=== PATIENT | male | born 1965 | race Caucasian/White ===

== ENCOUNTER 2021-07-20 09:59 | Day surgery (SDC) | payer BC ==
[2021-07-13 15:32] VITALS: BMI 29.3
[2021-07-20] MEDS ORDERED: BUPIVACAINE HCL/EPINEPHRINE/PF 30 ML VIAL IJ ONE (10:56)
[2021-07-20] MEDS ORDERED: PROPOFOL 20 ML ONE ×2 (12:20)
[2021-07-20] MEDS ORDERED: MIDAZOLAM HCL 2 MG/2 ML SINGLE DOSE VIAL ONE (12:20)
[2021-07-20] MEDS ORDERED: ROCURONIUM BROMIDE 50 MG/5 ML SYRINGE ONE (12:39)
[2021-07-20] MEDS ORDERED: SUGAMMADEX SODIUM 200 MG/2 ML VIAL ONE (12:52)
[2021-07-20] MEDS ORDERED: ONDANSETRON 4 MG/2 ML VIAL IVPUSH PRN (14:42)
[2021-07-20] MEDS ORDERED: oxyCODONE HCL 5 MG TABLET PO PRN ×2 (14:42)
[2021-07-20] MEDS ORDERED: LACTATED RINGERS SOLUTION 1,000 ML IV SCH (14:45)
[2021-07-20 14:52] VITALS: TEMP 97.8
[2021-07-20 15:16] VITALS: BP 131/79; PULSE 78
== END 2021-07-20 17:00 | disposition home or self-care (01) ==
LOC: FASU 09:59
PROVIDERS: ATTEND Orthopaedic Surgery
PROC: 0SQD4ZZ Repair Left Knee Joint, Percutaneous Endoscopic Approach (ICD-10-PCS; principal; 2021-07-20 13:00)
PROC: 0SQD4ZZ Repair Left Knee Joint, Percutaneous Endoscopic Approach (ICD-10-PCS; 2021-07-20 13:00)
DX: S83.242A Other tear of medial meniscus, current injury, left knee, initial encounter (principal); M17.12 Unilateral primary osteoarthritis, left knee; X58.XXXA Exposure to other specified factors, initial encounter; Y93.9 Activity, unspecified; Y92.9 Unspecified place or not applicable
CPT/HCPCS: 88304-TC; 94760

== ENCOUNTER 2023-11-23 08:38 | Day surgery (SDC) | payer BC ==
[2023-11-18 08:58] VITALS: BMI 26.2
[2023-11-23] MEDS ORDERED: oxyCODONE HCL 5 MG TABLET PO PRN (10:12)
[2023-11-23] MEDS ORDERED: LACTATED RINGERS SOLUTION 1,000 ML IV SCH (10:15)
[2023-11-23] MEDS ORDERED: MIDAZOLAM HCL 2 MG/2 ML SINGLE DOSE VIAL ONE (10:27)
[2023-11-23] MEDS ORDERED: FENTANYL CITRATE/PF 50 MCG/ML VIAL ONE (10:27)
[2023-11-23] MEDS ORDERED: PROPOFOL 40 ML ONE ×2 (10:32→11:17)
[2023-11-23] MEDS ORDERED: BUPIVACAINE HCL/EPINEPHRINE/PF 30 ML VIAL IJ ONE (10:35)
[2023-11-23] MEDS ORDERED: BUPIVACAINE HCL/PF 2.5 MG/ML - 30 ML VIAL IJ ONE (10:35)
[2023-11-23] MEDS ORDERED: ceFAZolin SODIUM 1 GM VIAL ONE (10:46)
[2023-11-23 12:00] VITALS: RESP 18
[2023-11-23] MEDS ORDERED: oxyCODONE HCL 5 MG TABLET ONE (12:39)
[2023-11-23] MEDS: oxyCODONE HCL 5 MG TABLET PO PRN (12:40)
[2023-11-23 12:50] VITALS: TEMP 97.6
[2023-11-23 14:41] VITALS: BP 134/69; PULSE 69
== END 2023-11-23 13:15 | disposition home or self-care (01) ==
LOC: FASU 08:38
PROVIDERS: ATTEND Orthopaedic Surgery
PROC: 0SBC4ZZ Excision of Right Knee Joint, Percutaneous Endoscopic Approach (ICD-10-PCS; principal; 2023-11-23 11:00)
DX: S83.241A Other tear of medial meniscus, current injury, right knee, initial encounter (principal); X58.XXXA Exposure to other specified factors, initial encounter; Y92.9 Unspecified place or not applicable; Y93.9 Activity, unspecified
CPT/HCPCS: 94760